=== PATIENT | female | born 1945 | race Caucasian/White ===

== ENCOUNTER 2024-03-31 05:33 | Day surgery (SDC) | payer MEDICARE, MEDICAID ==
[2024-03-24 16:20] LABS: BASOPHILS % (AUTO) 0.3 % (0-1); EOSINOPHILS # (AUTO) 0.1 X10'3 (0-0.9); LYMPHOCYTES # (AUTO) 2.3 X10'3 (1.1-4.8); LYMPHOCYTES % (AUTO) 25.7 % (21-51); MEAN CORPUSCULAR HEMOGLOBIN 31.5 PG (27.0-31.0); MEAN CORPUSCULAR VOLUME 92.6 FL (78-98); MEAN PLATELET VOLUME 9.8 FL (7.4-10.4); MONOCYTES # (AUTO) 0.6 X10'3 (0-0.9); MONOCYTES % (AUTO) 6.7 % (2-12); NEUTROPHILS # (AUTO) 5.9 X10'3 (1.8-7.7); NEUTROPHILS % (AUTO) 66.3 % (42-75); PRE OP HEMATOCRIT 45.7 % (35.0-45.0); PRE OP HEMOGLOBIN 15.5 g/dL (12.0-16.0); PRE OP PLATELET COUNT 185 X10'3 (140-440); PRE OP WHITE BLOOD COUNT 8.9 10'3 (4.8-10.8); RED BLOOD COUNT 4.94 X10'6 (4.20-5.60); RED CELL DISTRIBUTION WIDTH 15.1 % (11.5-14.5)
[2024-03-24 16:34] LABS: ALBUMIN 3.9 G/DL (3.4-5.0); ALKALINE PHOSPHATASE 105 IU/L (46-116); BLOOD UREA NITROGEN 23 MG/DL (7-18); BUN/CREATININE RATIO 21.7 (10.0-20.0); CALCIUM 9.6 MG/DL (8.5-10.1); CHLORIDE 105 MMOL/L (99-107); CREATININE 1.06 MG/DL (0.40-0.90); PRE OP ALT 17 U/L (30-65); PRE OP ANION GAP 5 (8-16); PRE OP AST 9 U/L (10-37); PRE OP BILIRUB, TOTAL 0.4 MG/DL (0.0-1.0); PRE OP POTASSIUM 4.3 MMOL/L (3.4-5.1); PRE OP SODIUM 138 MMOL/L (135-145); TOTAL CARBON DIOXIDE 28.5 MMOL/L (24-32); TOTAL PROTEIN 7.7 G/DL (6.4-8.2); eGFR 50 ML/MIN
[2024-03-24 16:35] LABS: PRE OP GLUCOSE 155 MG/DL (70-104)
[~2024-03-31] VITALS: Ht 162.6 cm; Wt 59.5 kg
[2024-03-31] VITALS (19 sets, daily range): BP systolic 86–139; BP diastolic 36–53; PULSE 63–79; RESP 12–19; TEMP 97.4; O2SAT 92–98
[2024-03-31] MEDS: DOCUMENT DATE & TIME OF BETA-BLOCKER PO ONE (05:30)
[~2024-03-31 05:33] MED LIST: ALBU90AE INH; ASPI81TA52 PO; ATOR20TA66 PO; ATRNS BOTHNARES; BISO5TAB29 PO; EMPA25TA PO; FLUT1BLS4 PO; MONT-40 PO; OMEP20CA16 PO; SACU1TAB7 PO; SPIR25TA5 PO
[2024-03-31] MEDS: ringers solution, lacted 1,000 ML IV SCH (06:29)
[2024-03-31] MEDS: famotidine 20mg tablet PO ONE (06:29)
[2024-03-31] MEDS ORDERED: sevoflurane 250ml liquid IH ONE (07:35)
[2024-03-31] MEDS ORDERED: midazolam 1 mg/ML 2ml injection ONE (07:41)
[2024-03-31] MEDS ORDERED: fentaNYL/PF 50MCG/1 ML 2ML syringe ONE (07:41)
[2024-03-31] MEDS ORDERED: dexamethasone sod phosphate 4mg/ml inj. ONE (07:55)
[2024-03-31] MEDS ORDERED: rocuronium 10mg/ml inj IV ONE (07:55)
[2024-03-31] MEDS ORDERED: propofol inj 20 ML IV ONE (07:55)
[2024-03-31] MEDS ORDERED: LIDOcaine 2% (20mg/ml) 5ml vial ONE (07:55)
[2024-03-31] MEDS ORDERED: ondansetron/PF 4mg/2ml inj ONE (07:55)
[2024-03-31] MEDS ORDERED: morphine 2 MG/ML inj. syringe IV PRN (08:30)
[2024-03-31] MEDS ORDERED: albuterol 2.5 MG/3 ML nebule NEB ONE (08:30)
[2024-03-31] MEDS ORDERED: ondansetron/PF 4mg/2ml inj IV PRN (08:30)
[2024-03-31] MEDS ORDERED: enalaprilat dihydrate 2.5mg/2ml vial IV PRN (08:30)
[2024-03-31] MEDS ORDERED: proCHLORperazine 10 MG/2 ml inj IV PRN (08:30)
[2024-03-31] MEDS ORDERED: meperidine/PF 25mg/ml syringe IV PRN ×3 (08:30)
[2024-03-31] MEDS ORDERED: labetalol 20mg/4ml (5mg/ml) syringe IV PRN (08:30)
[2024-03-31] MEDS ORDERED: morphine 4 MG/ML inj SYRINge IV PRN (08:30)
[2024-03-31] MEDS ORDERED: ringers solution, lacted 1,000 ML IV SCH (08:30)
[2024-03-31] MEDS: acetaminophen 1,000mg/100ml IV 100 ML IV ONE (10:21)
== END 2024-03-31 12:43 | disposition home or self-care (01) ==
LOC: PAS 05:33
PROVIDERS: ATTEND Internal Medicine Critical Care Medicine
DX: R91.8 Other nonspecific abnormal finding of lung field (principal); E11.9 Type 2 diabetes mellitus without complications; E78.5 Hyperlipidemia, unspecified; I50.9 Heart failure, unspecified; J44.9 Chronic obstructive pulmonary disease, unspecified; K21.9 Gastro-esophageal reflux disease without esophagitis; Z87.891 Personal history of nicotine dependence; Z85.41 Personal history of malignant neoplasm of cervix uteri; Z85.118 Personal history of other malignant neoplasm of bronchus and lung; Z79.82 Long term (current) use of aspirin; Z79.899 Other long term (current) drug therapy; Z90.710 Acquired absence of both cervix and uterus; Z95.810 Presence of automatic (implantable) cardiac defibrillator; Z98.891 History of uterine scar from previous surgery; Z98.890 Other specified postprocedural states; Z88.5 Allergy status to narcotic agent; Z88.8 Allergy status to other drugs, medicaments and biological substances
CPT/HCPCS: 31624; 31653; 36415; 71045; 71250; 80053; 82948; 85025; 87015; 87070; 87116; 87206; 93005; 94760; J0131; J1100; J2250; J2405; J2704; J2710; J3010; J3490; J7120; Z7506; Z7508; Z7512; 31622; 31625; 31627; 31628; 31635; 31645; 31654; A4615; A4618